=== PATIENT | male | born 1940 | race Caucasian/White ===

== ENCOUNTER 2018-08-24 00:34 | Emergency (ER) | payer MEDICARE, OTHER ==
[2018-08-24] MEDS ORDERED: cloNIDine 0.1 MG TAB ONE (00:53)
== END 2018-08-24 01:28 | disposition home or self-care (01) ==
LOC: MADERS 00:34
DX: I10 Essential (primary) hypertension (principal); E11.9 Type 2 diabetes mellitus without complications; K21.9 Gastro-esophageal reflux disease without esophagitis; E78.5 Hyperlipidemia, unspecified; Z79.899 Other long term (current) drug therapy; Z79.84 Long term (current) use of oral hypoglycemic drugs
CPT/HCPCS: 99283

== ENCOUNTER 2021-05-24 10:14 | Emergency (ER) | payer MEDICARE, OTHER ==
[2021-05-24] MEDS ORDERED: Meclizine HCl 25 MG TAB ONE (10:51)
== END 2021-05-24 10:58 | disposition home or self-care (01) ==
LOC: MADERS 10:14
DX: H81.399 Other peripheral vertigo, unspecified ear (principal); E11.9 Type 2 diabetes mellitus without complications; K21.9 Gastro-esophageal reflux disease without esophagitis; E78.00 Pure hypercholesterolemia, unspecified; E78.5 Hyperlipidemia, unspecified; I10 Essential (primary) hypertension
CPT/HCPCS: 99283